=== PATIENT | male | born 1990 | race African-American/Black ===

== ENCOUNTER 2020-04-30 19:10 | Emergency (ER) | payer BC ==
--- NOTE | 2020-04-30 20:25 | ULT ---
EXAM: US Testicular W Doppler PROVIDED CLINICAL HISTORY: Intermittent left lower quadrant pain with pain radiating to right groin. Evaluate for testicular tor daphney. Left testicular pain. COMPARISON: None FINDINGS: Tiny echogenic focus is seen in the right testicle likely due to tiny microlith. No testicular mass i s seen in the right testicle. Doppler evaluation with spectral analysis and color flow demonstrates arterial and venous flow in the right testicle. Right epididymis has a normal sonographic appearance. Initial imaging of the left testicle does not demonstrate flow in the left testicle or left epididymi s based on color flow evaluation. Follow-up imaging after reported detorsion of the left testicle does demonstrate flow on color flow evaluation with Doppler evaluation and spectral analysis demonstr ating arterial and venous flow in the left testicle. Small left hydrocele is present. IMPRESSION: 1. Initial imaging of the left testicle demonstrates absence of flow on color flow evaluation suggest ing left testicular torsion. However, after manipulation of the left testicle and detorsion, subsequent imaging of the left testicle demonstrates flow on color flow evaluation, and Doppler evalu ation with spectral analysis also demonstrates arterial and venous flow in the left testicle. 2. Normal-appearing right testicle with flow present. 3. Left hydrocele. 4. Above findings discussed with Dr. Segal on 04/30/2019 at 2021 hours.
== END 2020-04-30 21:39 | disposition home or self-care (01) ==
LOC: ERS 19:10
DX: N44.00 Torsion of testis, unspecified (principal)
CPT/HCPCS: 76870; 93976